=== PATIENT | female | born 1975 | race Caucasian/White ===

== ENCOUNTER 2016-09-09 07:24 | Emergency (ER) | payer OTHER ==
[~2016-09-09] VITALS: Ht 160 cm; Wt 91.0 kg
[~2016-09-09 07:24] MED LIST: CYCL-319 PO; PREN1TAB12 PO; tylenol
[2016-09-09 07:27] VITALS: Ht 160 cm; Wt 91.0 kg
[2016-09-09] MEDS ORDERED: AMO500 PO (08:04)
[2016-09-09] MEDS ORDERED: IBUP800T25 PO (08:04)
--- NOTE | 2016-09-09 09:27 | ERD ---
DATE OF SERVICE: HISTORY OF PRESENT ILLNESS: The patient is a 41-year-old female coming in complaining of a fever wi th body aches and sore throat for 4 days. Patient states she took ibuprofen this morning with no al leviation of her sore throat. Her boyfriend has had similar sick contacts and is taking antibiotics for a strep infection. Denies cough or runny nose. Denies vomiting, denies abdominal pain, denies change in urination or bowel movement. PAST MEDICAL HISTORY: Denies medical problems. ALLERGIES: Denies allergies to medications. SURGICAL HISTORY: Denies. SOCIAL HISTORY: Denies. GYNECOLOGIC HISTORY: Last normal menstrual period 1 week ago. REVIEW OF SYSTEMS: A 12-point review of systems was done. Refer to HPI for positives, all other sy stems negative. PHYSICAL EXAMINATION VITAL SIGNS: Temperature is 98.2, pulse 84, blood pressure is 130/71, respiratory 18, O2 saturation 99% on room air. Pain intensity of 4/10. GENERAL: The patient is well-appearing, well-nourished, no acute distress. HEART: Regular rate and rhythm. No murmurs, clicks, rubs or gallops. No S3 or S4. CHEST: Clear to auscultation bilaterally. There are no rales, wheezes or rhonchi. HEENT: Atraumatic. Conjunctivae are pink. Pupils equal, no are pink. Pupils equal, normal, no di scharge. The patient does have erythematous tonsils bilaterally. Uvula midline, no unilateral full ness noted of the posterior oropharynx. Positive cervical lymphadenopathy. NECK: C-spine is soft and supple, there is no meningismus. There is no cervical lymphadenopathy. SKIN: There is no apparent rash or petechia. The skin is warm and dry. BACK: Normal. DIAGNOSIS: Sore throat. MEDICAL DECISION MAKING: Patient's partner is being treated for strep. I will treat patient also f or strep, given she has had exposure and her Centor score is moderate. I have low suspicion for per itonsillar or retropharyngeal abscess. Low suspicion for pneumonia, and low suspicion for meningiti s or sepsis. DISCHARGE: The patient is discharged stable. Patient given prescription for amoxicillin and ibupro fen, and told to follow up with primary care within 1 to 2 days for reevaluation. Patient is told i f symptoms progress or worsen to return to the ER. All other questions answered at time of discharg e. Discharge summary given at the time of departure. Patient understood and complied with plan. Dictated By: GEORGE JO for HÉCTOR BENITES/GEOFF Conf#: [id number] DID#: [id number]
== END 2016-09-09 08:23 | disposition home or self-care (01) ==
LOC: FTE 07:24
DX: J02.9 Acute pharyngitis, unspecified (principal)
CPT/HCPCS: 99283